=== PATIENT | female | born 1970 | race Caucasian/White ===

== ENCOUNTER → 2017-07-08 | Outpatient (CLI) | payer OTHER ==
[~2017-07-08] MED LIST: DAYPRO600 M1 PO; SKELAXIN800 MG PO
== END | disposition home or self-care (01) ==
LOC: MAMMO 12:50
DX: N63 Unspecified lump in breast (principal)

== ENCOUNTER → 2023-06-26 | Outpatient (CLI) | payer OTHER ==
[2023-06-26 12:24] LABS: BASO % 0.3 % (0.0-1.0); EOS # 0.3 10*3/uL (0.0-0.4); EOS % 3.4 % (1.0-4.0); HEMATOCRIT 43.2 % (37.0-47.0); LYMPH % 21.7 % (27.0-41.0); MEAN CELL VOLUME 93.1 fl (81.0-99.0); MEAN CORPUSCULAR HGB 30.6 pg (27.0-31.0); MEAN CORPUSCULAR HGB CONC 32.9 g/dl (33.0-37.0); MEAN PLATELET VOLUME 11.8 fl (9.6-12.3); MONO # 0.5 10*3/uL (0.1-1.0); MONO % 5.8 % (3.0-9.0); NEUT # 6.3 10*3/uL (2.3-7.9); NEUT % 68.6 % (47.0-73.0); PLATELET COUNT AUTOMATED 204 10*3/uL (130-400); RED BLOOD COUNT 4.64 10*6/uL (4.10-5.10); RED CELL DISTRI WIDTH 13.6 % (0-14.5); RETICULOCYTE % 1.84 % (0.50-2.50); WHITE BLOOD COUNT 9.2 10*3/uL (4.8-10.8)
[2023-06-26 12:25] LABS: BILIRUBIN 1+ (Negative); BLOOD Negative (Negative); CLARITY Cloudy (Clear); COLOR Dark Yellow (Yellow); GLUCOSE Negative (Negative); KETONE Trace (Negative); LEUKO ESTERASE 1+ (Negative); NITRITE Negative (Negative); PH 5.5 (4.5-8.0); SPECIFIC GRAVITY 1.025 (1.001-1.030)
[2023-06-26 12:45] LABS: BACTERIA 2+; HYALINE CAST 0-2; MUCOUS 1+; RBC 0-2 rbc/hpf (0-2)
[2023-06-26 12:52] LABS: ALKALINE PHOSPHATASE 131 U/L (46-116); BUN 10 mg/dl (9-23); CHLORIDE 106 mmol/L (98-107); CHOLESTEROL 179 mg/dL (<200); GAMMA GLUTAMYL TRANSPEPTIDASE 24 U/L (0-73); LDL CHOLESTEROL 76 mg/dL (9-159); POTASSIUM 3.7 mmol/L (3.4-5.1); SGPT/ALT 20 U/L (10-49); T3 UPTAKE 21.4 % (22.4-36.7); THYROXINE (T4) TOTAL 10.6 ug/dl (4.5-10.9); TOTAL PROTEIN 7.1 gm/dL (6.0-8.0); TRIGLYCERIDES 175 mg/dl (<150); URIC ACID 4.9 mg/dL (3.1-7.8)
[2023-06-26 15:45] LABS: VITAMIN D, 25-HYDROXY 32.4 ng/mL (30-100)
== END | disposition home or self-care (01) ==
LOC: LAB 12:00
PROVIDERS: ATTEND Family Medicine
DX: R06.02 Shortness of breath (principal); R53.83 Other fatigue; E55.9 Vitamin D deficiency, unspecified; R79.89 Other specified abnormal findings of blood chemistry; E78.5 Hyperlipidemia, unspecified; R74.8 Abnormal levels of other serum enzymes

== ENCOUNTER → 2023-09-24 | Outpatient (CLI) | payer OTHER | END | disposition home or self-care (01) | LOC: RAD 12:33 | PROVIDERS: ATTEND Family Medicine | DX: M79.631 Pain in right forearm (principal) ==

== ENCOUNTER → 2024-06-24 | Outpatient (CLI) | payer OTHER | END | disposition home or self-care (01) | LOC: RAD 10:58 | PROVIDERS: ATTEND Family Medicine | DX: M17.12 Unilateral primary osteoarthritis, left knee (principal); M25.762 Osteophyte, left knee ==

== ENCOUNTER → 2024-07-13 | Outpatient (CLI) | payer OTHER | END | disposition home or self-care (01) | LOC: MRI 00:19 | PROVIDERS: ATTEND Family Medicine | DX: S83.282A Other tear of lateral meniscus, current injury, left knee, initial encounter (principal); M25.462 Effusion, left knee; M71.22 Synovial cyst of popliteal space [Baker], left knee; M25.562 Pain in left knee; X58.XXXA Exposure to other specified factors, initial encounter; Y93.89 Activity, other specified; Y92.89 Other specified places as the place of occurrence of the external cause; Y99.8 Other external cause status ==

== ENCOUNTER → 2024-08-05 | Outpatient (CLI) | payer OTHER ==
[2024-08-05 12:19] LABS: BASO % 0.2 % (0.0-1.0); BILIRUBIN Negative (Negative); BLOOD 1+ (Negative); CLARITY Clear (Clear); COLOR Dark Yellow (Yellow); EOS # 0.3 10*3/uL (0.0-0.4); EOS % 3.5 % (1.0-4.0); GLUCOSE Negative (Negative); HEMATOCRIT 39.7 % (37.0-47.0); KETONE Trace (Negative); LEUKO ESTERASE 1+ (Negative); LYMPH # 2.1 10*3/uL (1.3-4.4); MEAN CELL VOLUME 91.7 fl (81.0-99.0); MEAN CORPUSCULAR HGB 29.6 pg (27.0-31.0); MEAN CORPUSCULAR HGB CONC 32.2 g/dl (33.0-37.0); MEAN PLATELET VOLUME 11.5 fl (9.6-12.3); MONO # 0.6 10*3/uL (0.1-1.0); MONO % 6.4 % (3.0-9.0); NEUT # 5.8 10*3/uL (2.3-7.9); NEUT % 65.7 % (47.0-73.0); NITRITE Negative (Negative); PLATELET COUNT AUTOMATED 189 10*3/uL (130-400); RED BLOOD COUNT 4.33 10*6/uL (4.10-5.10); RED CELL DISTRI WIDTH 13.8 % (0-14.5); RETICULOCYTE % 1.49 % (0.50-2.50); WHITE BLOOD COUNT 8.8 10*3/uL (4.8-10.8)
[2024-08-05 12:29] LABS: BACTERIA 1+
[2024-08-05 12:30] LABS: HYALINE CAST 0-2; MUCOUS TRACE
[2024-08-05 12:58] LABS: ALKALINE PHOSPHATASE 139 U/L (46-116); BUN 13 mg/dl (9-23); CHLORIDE 107 mmol/L (98-107); CHOLESTEROL 182 mg/dL (<200); GAMMA GLUTAMYL TRANSPEPTIDASE 25 U/L (0-73); LDL CHOLESTEROL 81 mg/dL (9-159); POTASSIUM 3.7 mmol/L (3.4-5.1); SGPT/ALT 13 U/L (5-49); T3 UPTAKE 27.1 % (22.4-36.7); THYROXINE (T4) TOTAL 9.8 ug/dl (4.5-10.9); TOTAL PROTEIN 6.8 gm/dL (6.0-8.0); TRIGLYCERIDES 175 mg/dl (<150); URIC ACID 3.8 mg/dL (3.1-7.8)
[2024-08-05 14:28] LABS: VITAMIN D, 25-HYDROXY 35.5 ng/mL (30-100)
[2024-08-08 13:06] LABS: ANTI-DSDNA ANTIBODIES <1 IU/mL (0-9)
== END | disposition home or self-care (01) ==
LOC: LAB 11:58
PROVIDERS: ATTEND Family Medicine
DX: R53.83 Other fatigue (principal); R79.89 Other specified abnormal findings of blood chemistry; E78.5 Hyperlipidemia, unspecified; E55.9 Vitamin D deficiency, unspecified

== ENCOUNTER → 2025-06-30 | Outpatient (CLI) | payer OTHER ==
[2025-06-30 11:20] LABS: BASO # 0.0 10*3/uL (0.0-0.1); BASO % 0.2 % (0.0-1.0); EOS # 0.2 10*3/uL (0.0-0.4); EOS % 2.5 % (1.0-4.0); MEAN CELL VOLUME 88.8 fl (81.0-99.0); MEAN CORPUSCULAR HGB 28.0 pg (27.0-31.0); MEAN PLATELET VOLUME 11.6 fl (9.6-12.3); MONO # 0.6 10*3/uL (0.1-1.0); MONO % 6.8 % (3.0-9.0); NEUT # 5.9 10*3/uL (2.3-7.9); NEUT % 70.1 % (47.0-73.0); NUCLEATED RED BLOOD CELL 0.0 % (0.0-0.0); NUCLEATED RED BLOOD CELL 0.0 10*3/uL (0.0-0.0); PLATELET COUNT AUTOMATED 211 10*3/uL (130-400); RED CELL DISTRI WIDTH 14.6 % (0-14.5); RETICULOCYTE % 1.94 % (0.50-2.50)
[2025-06-30 11:46] LABS: BUN 11 mg/dl (9-23); GAMMA GLUTAMYL TRANSFERASE 19 U/L (0-38); LDL CHOLESTEROL 61 mg/dL (9-159); SGPT/ALT 12 U/L (5-49); T3 UPTAKE 32.7 % (22.4-36.7); THYROXINE (T4) TOTAL 10.7 ug/dl (4.5-10.9)
[2025-06-30 12:05] LABS: BILIRUBIN Negative (Negative); BLOOD Trace-Intact (Negative); CLARITY Cloudy (Clear); COLOR Yellow (Yellow); KETONE Trace (Negative); LEUKO ESTERASE 1+ (Negative); NITRITE Negative (Negative); PH 6.5 (4.5-8.0); SPECIFIC GRAVITY 1.020 (1.001-1.030); UROBILINOGEN 1.0 E.U./dl (0.0-1.0)
[2025-06-30 12:17] LABS: VITAMIN D, 25-HYDROXY 46.6 ng/mL (30-100)
[2025-06-30 13:08] LABS: EPITHELIAL CELLS 41-50; WBC 21-30 wbc/hpf (0-5)
[2025-06-30 13:09] LABS: BACTERIA 2+; MUCOUS 2+
== END | disposition home or self-care (01) ==
LOC: LAB 10:53
PROVIDERS: ATTEND Family Medicine
DX: M89.8X6 Other specified disorders of bone, lower leg (principal); M16.12 Unilateral primary osteoarthritis, left hip; E78.5 Hyperlipidemia, unspecified; E55.9 Vitamin D deficiency, unspecified

== ENCOUNTER → 2025-08-21 | Outpatient (CLI) | payer OTHER ==
[2025-08-21 12:11] LABS: MEAN CELL VOLUME 88.7 fl (81.0-99.0); MEAN CORPUSCULAR HGB 27.6 pg (27.0-31.0); MEAN PLATELET VOLUME 10.9 fl (9.6-12.3); NUCLEATED RED BLOOD CELL 0.0 % (0.0-0.0); NUCLEATED RED BLOOD CELL 0.0 10*3/uL (0.0-0.0); PLATELET COUNT AUTOMATED 270 10*3/uL (130-400); RED CELL DISTRI WIDTH 14.3 % (0-14.5); RETICULOCYTE % 2.05 % (0.50-2.50)
[2025-08-21 12:39] LABS: BUN 14 mg/dl (9-23); SGPT/ALT 11 U/L (5-49)
[2025-08-21 13:00] LABS: PLATELET SUFFICIENCY NORMAL (NORMAL)
[2025-08-22 16:08] LABS: A/G RATIO 1.0 (0.7-1.7); BETA GLOBULIN 1.0 g/dL (0.7-1.3); GLOBULIN, TOTAL 3.2 g/dL (2.2-3.9)
== END ==
LOC: LAB 11:49
PROVIDERS: ATTEND Family Medicine
DX: E78.5 Hyperlipidemia, unspecified (principal); R79.89 Other specified abnormal findings of blood chemistry; R53.83 Other fatigue; R74.8 Abnormal levels of other serum enzymes